=== PATIENT | female | born 1975 ===

== ENCOUNTER 2024-12-05 03:48 | Observation (INO) | payer OTHER, SELFPAY ==
[2024-12-05] VITALS (26 sets, daily range): BP systolic 100–160; BP diastolic 74–121; PULSE 85–111; RESP 16–18; TEMP 36.3–37.1; O2SAT 92–97; BMI 27.6; BMI 28.0
--- OUTSIDE RECORDS SUMMARY | 2024-12-05 03:52 | XMS_ITS | Clinical Summary ---
Author Organization [employer] [facility] Address [address] [place] [id number] Care Team Providers Care Engine Dynamometer Tester Name Role Phone Cristin Dalton MD Unavailable Lynnette Del Rio RN Unavailable Arlene Camilo MD Unavailable Pcp, No Primary Care Provider Unavailabl e Allergies Active Allergy Reactions Criticality Noted Date Comments Cats (Fur, Dander, Saliva) Other - Describe In Comment Field 04/22/2007 Itching eyes and throat House Dust 04/22/2007 Erythromycin Other - Describe In Comment Field 06/26/2008 Swelling in throat Olanzapine Headache 07/22/2024 Homeopathic Products 04/22/2007 Medications ibuprofen (ADVIL; MOTRIN) 200 mg tabletIndications: Status post endometrial ablation Take 2-4 tablets by mouth every 6 hours if needed for Pain (mild pain). 100 tablet 12/12/19 18 Active clonazePAM (KLONOPIN WAFER) 0.5 mg disintegrating tabletIndications: Seizure (HC) Take 1 Tablet (0.5 mg) by mouth 2 times daily if needed for Seizures (for any seizures. Including facial numbness, involuntary head turning or full body stiffness. do not exceed 2 doses in 24 hours. Call 911 if seizure lasts 5 minutes.). 5 Tablet 4 3:20 PM CDT 12/01/19 24 Active sennosides-docusat e (SENOKOT S) (8.6-50 mg) tabletIndications: Non-small cell carcinoma of left lung, stage 4 (HC) Take 1 Tablet by mouth 2 times daily if needed for Constipation. 20 Tablet 4 1:37 PM BACKPACKERS MANAGER 12/23/19 24 Active oxyCODONE (ROXICODONE) 5 mg immediate release tabletIndications: Non-small cell carcinoma of left lung, stage 4 (HC) Take 1-2 Tablets (5-10 mg) by mouth every 6 hours if needed for Pain. 8 Tablet 4 1:37 PM BACKPACKERS MANAGER 12/23/19 24 Active ibuprofen (ADVIL; MOTRIN) 600 mg tabletIndications: Non-small cell carcinoma of left lung, stage 4 (HC) Take 1 Tablet (600 mg) by mouth every 6 hours if needed for Pain. Maximum of 3200 mg in 24 hours. 30 Tablet 4 1:37 PM BACKPACKERS MANAGER 12/23/19 24 Active lidocaine-prilocai ne 2.5%-2.5% cream Apply 5 g topically to affected area(s) each time if needed. 12/24/19 24 Active levETIRAcetam (KEPPRA) 1,000 mg tabletIndications: Seizure (HC) Take 1 Tablet (1,000 mg) by mouth two times daily. 60 Tablet 3 03/23/19 25 Active LORazepam 0.5 mg tabIndications:Ins omnia, unspecified type TAKE 1 TO 2 TABLETS(0.5 TO 1 MG) BY MOUTH AT BEDTIME NEEDED FOR SLEEP 30 Tablet 05/17/19 25 Active dexAMETHasone 4 mg tabletIndications: Non-small cell carcinoma of left lung, stage 4 (HC),Metastasis to brain (HC) Take 2 Tablets (8 mg) by mouth once daily with a meal. Take for 3 days, starting the day after chemotherapy. 36 Tablet 2 07/14/19 25 Active ondansetron 8 mg tabletIndications: Non-small cell carcinoma of left lung, stage 4 (HC),Metastasis to brain (HC) Take 1 Tablet (8 mg) by mouth every 8 hours if needed for Nausea/Vomiting. 30 Tablet 2 07/14/19 25 Active prochlorperazine (Compazine) 10 mg tabletIndications: Non-small cell carcinoma of left lung, stage 4 (HC),Metastasis to brain (HC) Take 1 Tablet (10 mg) by mouth every 6 hours if needed for Nausea/Vomiting. 30 Tablet 2 07/14/19 25 Active folic acid 1 mg tabletIndications: Non-small cell carcinoma of left lung, stage 4 (HC),Metastasis to brain (HC) TAKE 1 TABLET BY MOUTH EVERY DAY, START 7 DAYS BEFORE CHEMOTHERAPY AND CONTINUE FOR 21 DAYS AFTER CHEMOTHERAPY 28 Tablet 11 11/06/19 25 Active Active Problems Problem Noted Date Diagnosed Date Non-small cell carcinoma of left lung, stage 4 1 Metastasis to brain 11/30/2023 Lung mass 11/30/2023 Seizure 11/30/2023 Pap smear for cervical cancer screening 10/18/19 23 Overview (11/14/2022): 10/2022 NIL/HPV negative. Plan: Pap/HPV due 10/2027. Menometrorrhagia 10/20/2017 Endometrial polyp 10/20/2017 Encounters Date Type Department Care Team Description 11/23/2024 11:00 AM CDT Office Visit [address] [phone] Arlene Camilo MD Follow Up (Non-small cell carcinoma of left lung, stage 4 (HC)) 11/23/2024 9:53 AM CDT - 11/23/2024 11:59 PM CDT Hospital Encounter [facility] [address] [place] [phone] Arlene Camilo MD Non-small cell carcinoma of left lung, stage 4 (HC) (Primary Dx); Metastasis to brain (HC) 11/23/2024 Travel 11/04/[address] [phone] Arlene Camilo MD Refill Request (Folic Acid) 11/02/2024 10:40 AM CDT Office Visit [address] [phone] Arlene Camilo MD Follow Up (Non-small cell carcinoma of left lung, stage 4 (HC)) 11/02/2024 9:25 AM CDT - 11/02/2024 11:59 PM CDT Hospital Encounter [facility] [address] [facility] [place] [address] Arlene Camilo MD Non-small cell carcinoma of left lung, stage 4 (HC) (Primary Dx); Metastasis to brain (HC) 11/02/2024 Travel 10/26/2024 10:43 AM CDT - 10/26/2024 11:59 PM CDT Hospital Encounter [address] [place] [address] Arlene Camilo MD Metastasis to brain (HC); Non-small cell carcinoma of left lung, stage 4 (HC) 10/26/2024 10:26 AM CDT - 10/26/2024 10:42 AM CDT Hospital Encounter [facility] [address] [place] [address] [place] [address] Arlene Camilo MD Non-small cell carcinoma of left lung, stage 4 (HC) (Primary Dx) 10/26/2024 Travel 10/18/[address] [place] [address] Val Kang, RN Results 10/14/2024 8:28 AM CDT - 10/14/2024 11:59 PM CDT Hospital Encounter [address] [place] [address] Gia Hutton PA Non-small cell carcinoma of left lung, stage 4 (HC) 10/14/2024 8:15 AM CDT - 10/14/2024 8:27 AM CDT Hospital Encounter [facility] [address] [place], [place] [address] [address] Arlene Camilo MD Non-small cell carcinoma of left lung, stage 4 (HC) (Primary Dx) 10/14/2024 Travel 10/12/2024 10:40 AM CDT Office [address] [place] [address] Arlene Camilo MD Follow Up (Metastasis to brain (HC)) 10/12/2024 9:24 AM CDT - 10/12/2024 11:59 PM CDT Hospital Encounter [facility] [address] [facility] [place] [address] Arlene Camilo MD Non-small cell carcinoma of left lung, stage 4 (HC) (Primary Dx); Metastasis to brain (HC) 10/12/2024 Travel 09/21/2024 11:00 AM CDT Office Visit [address] [phone] Arlene Camilo MD Follow Up (Non-small cell carcinoma of left lung, stage 4 (HC)//) 09/21/2024 9:49 AM CDT - 09/21/2024 11:59 PM CDT Hospital Encounter [facility] [address] [place] [address] Arlene Camilo MD Non-small cell carcinoma of left lung, stage 4 (HC) (Primary Dx); Metastasis to brain (HC) 09/20/2024 Travel from Last 3 Months Immunizations Immunization Administration Dates Next Due Hepatitis B (Adult) 05/12/2011,11/21/2010,2010 Tdap 09/10/2017 Family History Medical History Relation Name Comments Cancer-prostate Father Cancer-ovarian Maternal Aunt Fibromyalgia Mother Cancer-breast Paternal Aunt No Known Problems Sister Other Son esophageal stri cture Cancer-colon No Family History Relation Name Status Comments Father Alive Maternal Aunt Mother Alive Paternal Aunt Sister Alive Son Alive Social History Tobacco Use Types Packs/Day Years Used Date Smoking Tobacco: Former Cigarettes 0.1 5 2 003 - 02/16/2005 Smokeless Tobacco: Never Tobacco Cessation:Counseling Given: Not Answered Comments: smokes outside. Alcohol Use Standard Drinks/Week Comments Yes 2 (1 standard drink = 0.6 oz pur e alcohol) socially once in a while PHQ-2 Answer Date Recorded PHQ-2 TOTAL SCORE 0 11/06/2022 Social Connections Answer Date Recorded Do you often feel lonely or isolated from those around you? 0 11/30/2023 Financial Resource Strain Answer Date R ecorded Difficulty of Paying Living Expenses 3 11/30/2023 Difficulty of Paying Living Expenses Not on file 11/30/2023 Food Insecurity Answer Date Recorded Do you worry your food will run out before you are able to buy more? 1 11/30/2023 Transportation Needs Answer Date Record ed Does lack of transportation keep you from medica l appointments? 1 11/30/2023 Does lack of transportation keep you from work, meetings or getting things that you need? 1 11/30/2023 Housing Stability Answer Date Recorded What is your housing situation today? 1 11/30/2023 Interpersonal Safety Answer Date Record ed Are you being hit, kicked, p ushed or yelled at (see row info)? No 11/23/2024 Interpersonal Safety Abuse 12 - 18 Not on file 11/23/2024 Interpersonal Safety Ambulatory Vulnerability No t on file 11/23/2024 Utilities Answer Date Recorded Do you have trouble paying f or utilities (for example, heat, electricity, water, phone)? 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 file Not on file Not on file Obstetrics History Para Term AB IAB SAB Ectopic Multiple Livin g Live Births 1 1 1 1 Date Outcome GA Total Labor Labor/2nd/3rd Weight Sex Type Anes PTL Edyta A1 A5 Name Clin Term Comments 1 term VD (1996), 1 stepson (1992) Last Filed Vital Signs Vital Sign Reading Time Taken Comments Blood Pressure 143/73 11/23/2024 10:57 AM CDT Pulse 80 11/23/2024 10:57 AM CDT Temperature 36.4 C (97.6 F) 11/23/2024 10:57 AM CDT Respiratory Rate 18 11/23/2024 10:57 AM CDT Oxygen Saturation 99% 11/23/2024 10:57 AM CDT Inhaled Oxygen Concentration - - Weight 68.6 kg (151 lb 4.8 oz) 11/23/2024 10:57 AM CDT Height 157.5 cm (5' 2) 11/23/2024 10:57 AM CDT Body Mass Index 27.67 11/23/2024 10:57 AM CDT Plan of Treatment Upcoming Encounters Date Type Department Care Team (Late st Contact Info) Description 12/14/2024 10:00 AM CDT Appointment [facility] [address] [place], [place] [address] [address] 12/14/2024 10:45 AM CDT Office [address] [place] [phone] Lynnette Fishman, [employer] FINISHER [address] [place] [address] 12/14/2024 11:30 AM CDT Appointment [facility] [address] [place] [address] [place] [address] 01/04/2025 10:00 AM BACKPACKERS MANAGER Appointment [facility] [address] [place] [address] 01/04/2025 10:40 AM BACKPACKERS MANAGER Office [address] [place] [phone] Arlene Camilo MD [address] [place] [phone] 01/04/2025 11:00 AM BACKPACKERS MANAGER Appointment [facility] [address] [place] [address] 01/25/2025 10:00 AM BACKPACKERS MANAGER Appointment [facility] [address] [place] [address] 01/25/2025 11:00 AM BACKPACKERS MANAGER Office [address] [place] [phone] Arlene Camilo MD [address] [place] [address] 01/25/2025 11:30 AM BACKPACKERS MANAGER Appointment [facility] [address] [facility] [place] [address] Health Maintenance Due Date Last Done Comments COVID-19 vaccine series (#1) 1982 Depression screening for age 12+ 1989 HIV for age 15-65 1992 Hepatitis C screening for ag e 18-79 05/29/1995 Pneumococcal series for age 6-49 (1 of 2 - PCV) 1996 Colonoscopy through age 75 2022 Mammogram for age 45-75 10/14/2023 10/13/2022 Influenza Vaccine (#1) 2024 BMI (ht and wt on same day) for age 18+ 11/23/2025 11/23/2024, 11/02/2024, 10/12/2024, Additional history exists Tetanus booster 09/11/2027 09/10/2017 Lipids for age 45-75 11/07/2027 11/06/2022, 09/11/19 18 Pap test for age 21-65 11/07/2027 , 11/06/2022, 09/10/2017, Additional history exists RSV vaccine for adults or (1 - 1-dose 75+ series) 2052 Hepatitis B series for 19+ Completed 05/11, 11/21/2010, 10/17/2010 Medical Devices Implanted Type Area Commercial Kitchen Service Technician Device Identifier Shelf Expiration Date Model / Serial / Lot Port W/8fr 1 [employer] - [id number] Implanted:Qty: 1 on 12/23/2023 by Kate Velasquez MD at [facility] Right: Jugular Vein [employer] 05/16/2025 [id number] / / [id number] Procedures Procedure Name Priority Date/Time Associated Diagnosis Comments COMP METABOLIC PANEL STAT 11/23/2024 10:09 AM CDT Metastasis to brain (HC) Non-small cell carcinoma of left lung, stage 4 (HC) ONCOLOGY ABSOLUTE NEUTROPHIL COUNT STAT 11/23/2024 10:09 AM CDT Metastasis to brain (HC) Non-small cell carcinoma of left lung, stage 4 (HC) COMP METABOLIC PANEL STAT 11/02/2024 9:34 AM CDT Metastasis to brain (HC) Non-small cell carcinoma of left lung, stage 4 (HC) ONCOLOGY ABSOLUTE NEUTROPHIL COUNT STAT 11/02/2024 9:34 AM CDT Metastasis to brain (HC) Non-small cell carcinoma of left lung, stage 4 (HC) MR HEAD BRAIN WWO Routine 10/26/2024 11: 23 AM CDT Metastasis to brain (HC) Non-small cell carcinoma of left lung, stage 4 (HC) PET CT SKULL BASE TO MID THIGH SUBSEQUENT TREAT Routine 10/14/2024 10:30 AM CDT Non-small cell carcinoma of left lung, stage 4 (HC) COMP METABOLIC PANEL STAT 10/12/2024 9:56 AM CDT Metastasis to brain (HC) Non-small cell carcinoma of left lung, stage 4 (HC) ONCOLOGY ABSOLUTE NEUTROPHIL COUNT STAT 10/12/2024 9:56 AM CDT Metastasis to brain (HC) Non-small cell carcinoma of left lung, stage 4 (HC) RED CELL MORPHOLOGY STAT 09/21/2024 1 0:00 AM CDT Metastasis to brain (HC) Non-small cell carcinoma of left lung, stage 4 (HC) PLATELET ESTIMATE STAT 09/21/2024 10: 00 AM CDT Metastasis to brain (HC) Non-small cell carcinoma of left lung, stage 4 (HC) MANUAL DIFFERENTIAL STAT 09/21/2024 1 0:00 AM CDT Metastasis to brain (HC) Non-small cell carcinoma of left lung, stage 4 (HC) COMP METABOLIC PANEL STAT 09/21/2024 10:00 AM CDT Metastasis to brain (HC) Non-small cell carcinoma of left lung, stage 4 (HC) ONCOLOGY ABSOLUTE NEUTROPHIL COUNT STAT 09/21/2024 10:00 AM CDT Metastasis to brain (HC) Non-small cell carcinoma of left lung, stage 4 (HC) LIPID PANEL W REFLEX MEASURED LDL Routine 11/06/2022 10:27 AM CDT Lipid screening HPV HIGH RISK Routine 11/06/2022 10:00 AM CDT Cervical cancer screening XR MAMMO BILAT SCREENING Routine 10/13/2022 11:13 AM CDT Visit for screening mammogram from Last 3 Months or Most Recently Relevant to Health Maintenance Results * (ABNORMAL) ONCOLOGY ABSOLUTE NEUTROPHIL COUNT (11/23/2024 10:09 AM CDT) Only the most recent of4 resultswithin the time period is included. WHITE BLOOD COUNT 3.3(L) 4.5 - 11.0 thou/cu mm 11/23/2024 10:19 AM CDT [facility] RED BLOOD COUNT 3.72(L) 4.00 - 5.20 mil/cu mm 11/23/2024 10:19 AM CDT [facility] HEMOGLOBIN 12.9 12.0 - 16.0 g/dL 11/23/2024 10:19 AM CDT [facility] HEMATOCRIT 36.7 33.0 - 51.0 % 11/23/2024 10:19 AM CDT [facility] MCV 99 80 - 100 fL 11/23/2024 10:19 AM CDT [facility] MCH 34.7(H) 26.0 - 34.0 pg 11/23/2024 10:19 AM CDT [facility] MCHC 35.1 32.0 - 36.0 g/dL 11/23/2024 10:19 AM CDT [facility] RDW 13.2 11.5 - 15.5 % 11/23/2024 10:19 AM CDT [facility] PLATELET COUNT 243 140 - 440 thou/cu mm 11/23/2024 10:19 AM CDT [facility] MPV 9.6 6.5 - 11.0 fL 11/23/2024 10:19 AM CDT [facility] % NEUT 40.1 % 11/23/2024 10:19 AM CDT [facility] % LYMPH 33.4 % 11/23/2024 10:19 AM CDT [facility] % MONO 13.9 % 11/23/2024 10:19 AM CDT [facility] % EOS 11.1 % 11/23/2024 10:19 AM CDT [facility] % BASO 1.2 % 11/23/2024 10:19 AM CDT [facility] ONCOLOGY ABSOLUTE NEUTROPHILS 1.3(L) 1.7 - 7.0 thou/cu mm 11/23/2024 10:19 AM CDT [facility] % IMMATURE GRAN (METAS,MYELOS,SC OS) 0.3 % 11/23/2024 10:19 AM CDT [facility] ABSOLUTE LYMPHOCYTES 1.1 0.9 - 2.9 thou/cu mm 11/23/2024 10:19 AM CDT [facility] ABSOLUTE MONOCYTES 0.5 <0.9 thou/cu mm 11/23/2024 10:19 AM CDT [facility] ABSOLUTE EOSINOPHILS 0.4 <0.5 thou/cu mm 11/23/2024 10:19 AM CDT [facility] ABSOLUTE BASOPHILS 0.0 <0.3 thou/cu mm 11/23/2024 10:19 AM CDT [facility] ABSOLUTE IMMATURE GRANULOCYTES(MET ,MYELOS,PROS) 0.0 <0.3 thou/cu mm 11/23/2024 10:19 AM CDT [facility] NRBC 0.0 % 11/23/2024 10:19 AM CDT [facility] ABS NRBC 0.0 thou /cu mm 11/23/2024 10:19 AM CDT [facility] Blood BLOOD SPECIMEN / Unknown Line/Port / Unknown 11/23/2024 10:09 AM CDT 11/23/2024 10:15 AM CDT Narrative [facility] - 11/23/2024 10:19 AM CDT Includes CBC and differential. us Arlene Camilo MD HEMATOLOGY Final Result [facility] [address] [place] [address] * (ABNORMAL) COMP METABOLIC PANEL (11/23/2024 10:09 AM CDT) Only the most recent of4 resultswithin the time period is included. SODIUM 142 136 - 145 mmol/L 11/23/2024 10:52 AM CDT [facility] POTASSIUM 3.6 3.5 - 5.1 mmol/L 11/23/2024 10:52 AM CDT [facility] CHLORIDE 105 98 - 107 mmol/L 11/23/2024 10:52 AM CDT [facility] CO2,TOTAL 28 22 - 29 mmol/L 11/23/2024 10:52 AM CDT [facility] ANION GAP 9 5 - 18 11/23/2024 10:52 AM T [facility] GLUCOSE 110(H) 70 - 99 mg/dL 11/23/2024 10:52 AM CDT [facility] CALCIUM 9.3 8.8 - 10.4 mg/dL 11/23/2024 10:52 AM CDT [facility] Comment: Reference ranges for this test were updated on 12/22/2023 to reflect our healthy population more accurately. Reference range changes are not retroactively applied to results, but previous results using the same methodology can be interpreted in the context of the new reference range. BUN 6 6 - 20 mg/dL 11/23/2024 10:52 AM CDT [facility] CREATININE 0.74 0.50 - 0.90 mg/dL 11/23/2024 10:52 AM T [facility] BUN/CREAT RATIO 8(L) 10 - 20 10:52 AM T [facility] eGFR >90 >90 mL/min/1.7 3m2 11/23/2024 10:52 AM T [facility] Comment:As of 2021, eG FR is calculated by the CKD-EPI creatinine equation without race adjustment. eGFR can be influenced by muscle mass, exercise, and diet. The reported eGFR is an estimation only and is only applicable if the renal function is stable. ALBUMIN 4.1 4.0 - 4.9 g/dL 11/23/2024 10:52 AM CDT [facility] PROTEIN,TOTAL 6.0 6.0 - 8.0 g/dL 11/23/2024 10:52 AM CDT [facility] BILIRUBIN,TOTAL 0.2 0.0 - 1.2 mg/dL 11/23/2024 10:52 AM CDT [facility] ALK PHOSPHATASE 68 35 - 104 IU/L 11/23/2024 10:52 AM CDT [facility] ALT (SGPT) 20 10 - 35 IU/L 11/23/2024 10:52 AM CDT [facility] AST (SGOT) 23 10 - 35 IU/L 11/23/2024 10:52 AM CDT [facility] Blood BLOOD SPECIMEN / Unknown Line/Port / Unknown 11/23/2024 10:09 AM CDT 11/23/2024 10:15 AM CDT Arlene Camilo MD CHEMISTRY Final Result [facility] [id number] [place] [address] * MR BRAIN W/WO CONTRAST (10/26/2024 11:23 AM CDT) Anatomical Region Laterality Modality BRAIN, HEAD Magnetic Resonan ce 10/27/2024 10:1 2 AM CDT Narrative 10/27/2024 10:12 AM CDT For Patients: As a result of the Century Cures Act, medical imaging exams and procedure reports are released immediately into your electronic medical record. You may view this report before your referring provider. If you have questions, please contact your health care provider. Indication: Metastasis to brain, NSCLC, met disease to brain follow up Technique: Noncontrast sagittal T1, axial FLAIR, T2 turbo spine echo, and diffusion weighted images. Supplemental post contrast T1 weighted axial and coronal sequences are provided after administration of 14 cc gadolinium-based IV contrast. Comparison: 08/03/2024 MRI Findings: No mass effect or midline shift. No hydrocephalus. The pituitary gland, optic chiasm, pineal gland, and cerebellar tonsils are unremarkable. There is no evidence of diffusion restriction to suggest acute ischemia. No suspicious extra-axial collection or acute intracranial hemorrhage. Decreased mastoid effusions bilaterally compared to the prior study. Stable 4 mm metastasis in the right middle frontal gyrus with decreased overall enhancement intensity (series 12, image 135). Stable adjacent FLAIR signal hyperintensity. Stable 3 mm metastasis in the right superior frontal gyrus (series 12, image 135). Stable adjacent FLAIR signal hyperintensity. Decreased size of enhancing lesion in the left frontal lobe centrum semiovale measuring up to 3 mm previously 4 mm (series 12, image 117). 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 Stable 3 mm focus of enhancement in the left frontal operculum (series 12, image 84). Decreased size of treated metastasis in the right cingulate gyrus measuring up to 6 x 2 mm previously 7 x 4 mm (series 12, image 109). Impression: 1. Decreased size of enhancing metastatic lesions in the left frontal lobe centrum semiovale and right cingulate gyrus. Otherwise stable metastatic lesions in the right middle frontal gyrus, right superior frontal gyrus, and left frontal operculum. 2. No new lesions or evidence of interval tumor progression. 3. No acute intracranial abnormalities. Dictated by Duke Brito MD @ 10/27/2024 10:12:49 AM (Electronically Signed) Procedure Note Duke Brito MD - 10/27/2024 For Patients: As a result of the Century Cures Act, medical imagingexams and procedure reports are released immediately into your electronicmedical record. You may view this report before your referring provider.If you have questions, please contact your health care provider. Indication: Metastasis to brain, NSCLC, met disease to brain follow up Technique: Noncontrast sagittal T1, axial FLAIR, T2 turbo spine echo, and diffusionweighted images. Supplemental post contrast T1 weighted axial and coronalsequences are provided after administration of 14 cc gadolinium-based IVcontrast. Comparison: 08/03/2024 MRI Findings: No mass effect or midline shift. No hydrocephalus. The pituitary gland,optic chiasm, pineal gland, and cerebellar tonsils are unremarkable. Thereis no evidence of diffusion restriction to suggest acute ischemia. Nosuspicious extra-axial collection or acute intracranial hemorrhage.Decreased mastoid effusions bilaterally compared to the prior study. Stable 4 mm metastasis in the right middle frontal gyrus with decreasedoverall enhancement intensity (series 12, image 135). Stable adjacentFLAIR signal hyperintensity. Stable 3 mm metastasis in the right superior frontal gyrus (series 12,image 135). Stable adjacent FLAIR signal hyperintensity. Decreased size of enhancing lesion in the left frontal lobe centrumsemiovale measuring up to 3 mm previously 4 mm (series 12, image 117). 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 Stable 3 mm focus of enhancement in the left frontal operculum (series 12,image 84). Decreased size of treated metastasis in the right cingulate gyrusmeasuring up to 6 x 2 mm previously 7 x 4 mm (series 12, image 109). Impression: 1. Decreased size of enhancing metastatic lesions in the left frontal lobecentrum semiovale and right cingulate gyrus. Otherwise stable metastaticlesions in the right middle frontal gyrus, right superior frontal gyrus,and left frontal operculum. 2. No new lesions or evidence of interval tumor progression. 3. No acute intracranial abnormalities. Dictated by Duke Brito MD @ 10/27/2024 10:12:49 AM (Electronically Signed) us Arlene Camilo MD MR Final Result * PET CT SKULL BASE TO MID THIGH SUBSEQUENT TREAT (10/14/2024 10:30 AM CDT) Anatomical Region Laterality Modality Positron Emissio n Tomography (PET) 10/18/2024 10:5 3 AM CDT Impressions 10/18/2024 10:53 AM CDT 1. Decrease in size and activity of the irregular opacity in the left upper lobe. 2. Resolution of the mediastinal and bilateral hilar adenopathy. 3. Focal area of increased activity in the superior segment of the left lower lobe with no corresponding CT abnormality may be artifactual. 4. Resolution of the upper abdominal adenopathy and the increased activity in the left adrenal gland. Dictated by Alexander Méndez MD @ 10/18/2024 10:53:38 AM (Electronically Signed) Narrative 10/18/2024 10:53 AM CDT For Patients: As a result of the 21st Century Cures Act, medical imaging exams and procedure reports are released immediately into your electronic medical record. You may view this report before your referring provider. If you have questions, please contact your health care provider. CLINICAL HISTORY: Metastatic lung cancer. TECHNIQUE: Following IV injection of 13-itseon-9-deoxyglucose (FDG) and a standard uptake period of approximately 60 minutes, a non-contrast CT scan followed by a PET scan were acquired along the length of the body from the mid portion of the head to the mid thighs. The non-contrast CT was used for anatomic localization and photon attenuation correction of the PET scan. Blood Glucose Level (mg/dL): 110 FDG Dose (mCi): 11.1 COMPARISON: PET-CT scans dated 08 Jul 2024, 01 April 2024, and 15 December 2023. FINDINGS: Head/Neck: No abnormal activity identified in the head and neck. Chest: Right-sided Port-A-Cath. Resolution of the mediastinal and bilateral hilar adenopathy. No axillary adenopathy. The lungs show decrease in size of an irregular opacity in the left upper lobe measuring 1.8 x 1.2 cm, previously 2.2 x 1.6 cm, SUV max 2.7 previously 34.5. Small area of increased activity in the superior segment of the left lower lobe with no corresponding CT abnormality may represent a blood clot injection artifact, SUV max 34.1. No other focal pulmonary opacities. No pneumothorax. Abdomen/Pelvis: No focal abnormalities identified in the visualized portions of the liver, spleen, pancreas, adrenal glands, and kidneys. No hydronephrosis. Resolution of the increased activity in the left adrenal gland. Scattered areas of increased activity in the colon with no corresponding CT abnormality may be physiologic. The remainder of the GI tract is incompletely distended but shows no gross abnormalities. Resolution of the upper abdominal adenopathy. No retroperitoneal, pelvic sidewall, or mesenteric adenopathy. Bones: No abnormal skeletal activity identified. Procedure Note Alexander Méndez MD - 10/18/2024 For Patients: As a result of the Cures Act, medical imagingexams and procedure reports are released immediately into your electronicmedical record. You may view this report before your referring provider.If you have questions, please contact your health care provider. CLINICAL HISTORY: Metastatic lung cancer. TECHNIQUE: Following IV injection of 08-hjigpv-7-deoxyglucose (FDG) and a standarduptake period of approximately 60 minutes, a non-contrast CT scan followedby a PET scan were acquired along the length of the body from the midportion of the head to the mid thighs. The non-contrast CT was used foranatomic localization and photon attenuation correction of the PET scan. Blood Glucose Level (mg/dL): 110 FDG Dose (mCi): 11.1 COMPARISON: PET-CT scans dated 08 Jul 2024, 01 April 2024, and 15 December 2023. FINDINGS: Head/Neck: No abnormal activity identified in the head and neck. Chest: Right-sided Port-A-Cath. Resolution of the mediastinal and bilateral hilaradenopathy. No axillary adenopathy. The lungs show decrease in size of an irregular opacity in the left upperlobe measuring 1.8 x 1.2 cm, previously 2.2 x 1.6 cm, SUV max 2.7previously 34.5. Small area of increased activity in the superior segment of the left lowerlobe with no corresponding CT abnormality may represent a blood clotinjection artifact, SUV max 34.1. No other focal pulmonary opacities. No pneumothorax. Abdomen/Pelvis: No focal abnormalities identified in the visualized portions of the liver,spleen, pancreas, adrenal glands, and kidneys. No hydronephrosis. Resolution of the increased activity in the left adrenal gland. Scattered areas of increased activity in the colon with no correspondingCT abnormality may be physiologic. The remainder of the GI tract isincompletely distended but shows no gross abnormalities. Resolution of the upper abdominal adenopathy. No retroperitoneal, pelvic sidewall, or mesenteric adenopathy. Bones: No abnormal skeletal activity identified. IMPRESSION: 1. Decrease in size and activity of the irregular opacity in the leftupper lobe. 2. Resolution of the mediastinal and bilateral hilar adenopathy. 3. Focal area of increased activity in the superior segment of the leftlower lobe with no corresponding CT abnormality may be artifactual. 4. Resolution of the upper abdominal adenopathy and the increased activityin the left adrenal gland. Dictated by Alexander Méndez MD @ 10/18/2024 10:53:38 AM (Electronically Signed) us Gia BORGES PET Final Resul t * RED CELL MORPHOLOGY (09/21/2024 10:00 AM CDT) RBC COMMENT RBC morphology appears normal RBC morphology appears normal, RBC morphology within normal limits for newborns. 09/21/2024 12:36 PM CDT [facility] Blood BLOOD SPECIMEN / Unknown Line/Port / Unknown 09/21/2024 10:00 AM CDT 09/21/2024 11:05 AM CDT Arlene Camilo MD HEMATOLOGY Final Result Performing Organization Address City/[facility] [address]/ZIP Co de Phone Number [address] [address] * PLATELET ESTIMATE (09/21/2024 10:00 AM CDT) Pathologist [facility] PLATELET ESTIMATE Adequate Adequate, No estimate 09/21/2024 12:34 PM CDT [facility] Blood BLOOD SPECIMEN / Unknown Line/Port / Unknown 09/21/2024 10:00 AM CDT 09/21/2024 11:05 AM CDT Narrative [facility] - 09/21/2024 12:34 PM CDT Includes CBC and differential. Arlene Camilo MD HEMATOLOGY Final Result Performing Organization Address City/[facility] [address]/[facility] Co de Phone Number [address] [address] * (ABNORMAL) MANUAL DIFFERENTIAL (09/21/2024 10:00 AM CDT) Pathologist [facility] % NEUTROPHILS 52.0 % 09/21/2024 12:34 PM CDT [facility] % LYMPHOCYTES 24.0 % 09/21/2024 12:34 PM CDT [facility] % MONOCYTES 13.0 % 09/21/2024 12:34 PM CDT [facility] % EOSINOPHILS 11.0 % 09/21/2024 12:34 PM CDT [facility] % BASOPHILS 0.0 % 09/21/2024 12:34 PM CDT [facility] NEUTROPHILS ABSOLUTE 3.0 1.7 - 7.0 thou/cu mm 09/21/2024 12:34 PM CDT [facility] LYMPHOCYTES ABSOLUTE 1.4 0.9 - 2.9 thou/cu mm 09/21/2024 12:34 PM CDT [facility] MONOCYTES ABSOLUTE 0.8 <0.9 thou/cu mm 09/21/2024 12:34 PM CDT [facility] EOSINOPHILS ABSOLUTE 0.6(H) <0.5 thou/cu mm 09/21/2024 12:34 PM CDT [facility] BASOPHILS ABSOLUTE 0.0 <0.3 thou/cu mm 09/21/2024 12:34 PM CDT [facility] Blood BLOOD SPECIMEN / Unknown Line/Port / Unknown 09/21/2024 10:00 AM CDT 09/21/2024 11:05 AM CDT Narrative [facility] - 09/21/2024 12:34 PM CDT Includes CBC and differential. us Arlene Camilo MD [place] [address] * (ABNORMAL) LIPID PANEL W REFLEX MEASURED LDL (11/06/2022 10:27 AM CDT) CHOLESTEROL,TOTAL 282(H) 100 - 199 mg/dL 11/06/2022 9:47 PM CDT [facility] Comment: Cholesterol, Total Reference Ranges Desirable <200 mg/dL Borderline 200-239 mg/dL High >=240 mg/dL TRIGLYCERIDES 197(H) <150 mg/dL 11/06/2022 9:47 PM CDT [facility] HDL CHOLESTEROL 53 >40 mg/dL 9:47 PM CDT [facility] NON-HDL CHOLESTEROL 229(H) <145 mg/dl 11/06/2022 9:47 PM CDT [facility] CHOL/HDL RATIO 5.32(H) <4.50 11/06/2022 9:47 PM CDT [facility] LDL CHOLESTEROL 190(H) <=130 mg/dL 11/06/2022 9:47 PM CDT [facility] VLDL CHOLESTEROL 39(H) <=30 mg/dL 11/06/2022 9:47 PM CDT [facility] PROVIDER ORDERED STATUS FASTING 11/06/2022 9:47 PM CDT [facility] Blood BLOOD SPECIMEN / Unknown Venipuncture / Unknown 11/06/2022 10:27 AM CDT 11/06/2022 10:27 AM CDT Roberto Scott DO CHEMISTRY Final Result Performing Organization Address City/[facility] [address]/ZIP Co de Phone Number [facility] [address] [place] [address], * HPV HIGH RISK (11/06/2022 10:00 AM CDT) TYPE 16 Negative Negative 11/11/2022 2:23 PM CDT [facility] TYPE 18 Negative Negative 11/11/2022 2:23 PM CDT [facility] OTHER HIGH RISK TYPES Negative Negative 11/11/2022 2:23 PM CDT [facility] Other (Cervical) Non-Blood / Unknown 11/06/2022 10:00 AM CDT 11/07/2022 11:42 AM CDT Narrative [facility] - 11/11/2022 2:23 PM CDT HPV types 16, 18, 31, 33, 35, 39, 45, 51, 52, 56, 58, 59, 66 and 68 DNA were undetectable or below the pre-set threshold. Methodology: [employer] 4800 HPV Test Roberto Scott DO MICROBIOLOGY Final Result [facility] [address] [address], [place] * XR MAMMO BILAT SCREENING (10/13/2022 11:13 AM CDT) Anatomical Region Laterality Modality BREASTS, Breast Left, Breast Right Bilateral Mammography Impressions 10/13/2022 2:21 PM CDT There is no radiographic evidence for malignancy. Recommend annual mammograms. MAMMOGRAM ASSESSMENT: ACR 1 Negative PATIENTS: You will also receive a letter with your examination results in an easy to read format. If you have questions about your results, please contact your referring provider. Narrative 10/13/2022 2:21 PM CDT For Patients: As a result of the Century Cures Act, medical imaging exams and procedure reports are released immediately into your electronic medical record. You may view this report before your referring provider. If you have questions, please contact your health care provider. XR MAMMO BILAT SCREENING [[id number]] CLINICAL HISTORY: This is an asymptomatic 47 y.o. patient. INDICATION FOR EXAM: Mammogram Screening. TECHNIQUE: CC & MLO views were obtained. This study was evaluated with the assistance of Computer-Aided Detection. COMPARISON FILM: This is a baseline study. FINDINGS: The breasts have scattered areas of fibroglandular density. There are no dominant masses, suspicious micro calcifications or areas of architectural distortion. Roberto Scott DO MAMMO Final Result from Last 3 Months or Most Recently Relevant to Health Maintenance Insurance [employer]LE[employer]SEPH [id number] Advance Directives * Full Code (Latest Code Status on File) Date Activated Date Inactivated Comments 12/23/2023 10:34 AM 12/23/2023 4:34 PM Question Answer Comments Code Status Discussion: Unable to Assess Preferences, Provider to review later * Full Code Date Activated Date Inactivated Comments 11/30/2023 4:33 PM 12/04/2023 7:16 PM Question Answer Comments Code Status Discussion: Other * Full Code Date Activated Date Inactivated Comments 12/11/2017 6:02 AM 12/11/2017 11:27 AM Question Answer Comments Code Status Discussion: Discussed Care Teams 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 PCP - General 08/30/24 Cristin Dalton MD [address] [place] [address] Radiation Oncologist Radiation Oncology 12/02/23 Lynnette Del Rio, RN [address] [place] [address] Nurse Navigator - Oncology Registered Nurse 12/04/23 Arlene Camilo MD [address] [place] [address] Medical Oncologist Internal Medicine 12/14/23
--- NOTE | 2024-12-05 03:55 | ED.GENADULT ---
HPI - General Adult General Time Seen by Provider: 03:55 Date Seen: 12/05/24 Chief complaint: Abdominal Pain Stated complaint: abdominal pain Time Seen by Provider: 12/05/24 03:55 Source: patient and family (Spouse) Mode of arrival: ambulatory Limitations: no limitations History of Present Illness HPI narrative: 49-year-old female who presents today with abdominal pain. This started about 1 hour prior to coming the emergency department. Generalized, worse with lying down. Nausea no vomiting, no constipation or diarrhea, no fever chills. Has not taken anything for this. Related Data Home Medications ?Medication ?Instructions ?Recorded ?Confirmed folic acid 1 mg tablet 1 mg PO DAILY 12/05/24 12/05/24 levetiracetam 250 mg tablet PO 12/05/24 ondansetron HCl 8 mg tablet 8 mg PO 3XD 12/05/24 12/05/24 Allergies Allergy/AdvReac Type Severity Reaction Status Date / Time azithromycin Allergy Verified 12/05/24 04:56 Exam Narrative: Exam Narrative: General: Well-developed and well-nourished, appears uncomfortable Head: Atraumatic and normocephalic Eyes: Pupils are equal reactive, extraocular motions intact, conjunctiva clear ENT: External nose and ears are normal, posterior pharynx without erythema or exudate Neck: No midline cervical tenderness, full spontaneous range of motion the neck, trachea midline, no adenopathy Heart: Tachycardic rate and rhythm no murmurs or thrills Lungs: Clear to auscultation bilaterally without wheezes or crackles Abdomen: Soft, diffuse abdominal tenderness especially in the upper abdomen,, nondistended with active bowel sounds Musculoskeletal: No tenderness, deformity, or edema Neurologic: Awake, alert, and oriented x3, no gross focal neurologic deficits, cranial nerves intact as tested Psych: Mood and affect are appropriate Skin: No rashes Const: Vital Signs, click to edit/add: Vital Signs - 24 hr 12/05/24 03:55 12/05/24 04:32 12/05/24 04:33 Temperature 98.8 F Pulse Rate 108 H 103 H Pulse Rate [Pulse Oximeter] 111 H Respiratory Rate 18 18 Blood Pressure 160/100 H Blood Pressure [Ri ght Upper Arm] 145/121 H Pulse Oximetry 96 92 93 Oxygen Delivery Me thod Room Air 12/05/24 04:34 12/05/24 04:45 12/05/24 05:00 Temperature Pulse Rate 106 H 106 H 104 H Pulse Rate [Pulse Oximeter] Respiratory Rate Blood Pressure Blood Pressure [Ri ght Upper Arm] Pulse Oximetry 94 96 92 Oxygen Delivery Me thod 12/05/24 05:01 12/05/24 05:24 12/05/24 05:30 Temperature Pulse Rate 103 H 102 H 104 H Pulse Rate [Pulse Oximeter] Respiratory Rate Blood Pressure 131/87 Blood Pressure [Ri ght Upper Arm] Pulse Oximetry 94 95 94 Oxygen Delivery Me thod 12/05/24 05:31 12/05/24 05:32 12/05/24 05:45 Temperature Pulse Rate 104 H 107 H 98 Pulse Rate [Pulse Oximeter] Respiratory Rate Blood Pressure 135/81 Blood Pressure [Ri ght Upper Arm] Pulse Oximetry 95 94 93 Oxygen Delivery Me thod 12/05/24 06:00 12/05/24 06:01 12/05/24 06:15 Temperature Pulse Rate 100 96 105 H Pulse Rate [Pulse Oximeter] Respiratory Rate Blood Pressure 117/76 Blood Pressure [Ri ght Upper Arm] Pulse Oximetry 93 96 96 Oxygen Delivery Me thod 12/05/24 06:30 12/05/24 06:32 12/05/24 07:01 Temperature Pulse Rate 106 H 103 H 94 Pulse Rate [Pulse Oximeter] Respiratory Rate Blood Pressure 100/75 116/74 Blood Pressure [Ri ght Upper Arm] Pulse Oximetry 96 95 94 Oxygen Delivery Me thod Course Course ED Course: Reviewed most recent oncology visit from November 23 which was follow-up for lung cancer, she has multiple brain metastases which actually contribute procedure, leading to her initial diagnosis. Patient seen examined, presents today with abdominal pain. Patient with metastatic lung cancer, on chemotherapy. Diffuse abdominal pain started about an hour prior to coming to the emergency department. On exam here, patient appears uncomfortable, mild diffuse abdominal tenderness, tachycardic. Consider bowel obstruction, acute cholecystitis, biliary colic. Labs and CT scan ordered along with Dilaudid for pain. Reevaluation(s) Time of Reevaluation #1: 04:34 Reevaluation #1: CT abdomen and pelvis independently interpreted by me negative for acute intra-abdominal findings. IMPRESSION: Scattered osseous lesions, most of which are sclerotic, though some appear slightly lytic are concerning for osseous metastases. There is a 0.2 centimeter hypodense lesion in segment 5 of the liver, which is indeterminate and too small to characterize. This can be followed on future exams. Mild periportal edema. Time of Reevaluation #2: 05:02 Reevaluation #2: Patient recheck, 2nd dose of Dilaudid this being given, remains quite uncomfortable. Did confirm that her pain is predominantly in the mid abdomen. We discussed findings on CT scan which did not suggest a definitive etiology for pain. Labs are pending. Time of Reevaluation #3: 05:41 Reevaluation #3: Labs independently interpreted by me with elevated AST and ALT, otherwise normal in bed panel and normal lipase. Right upper quadrant ultrasound ordered. Patient more comfortable after medications. Additional Reevaluation(s): 6:50 a.m. patient recheck, she is comfortable but remains tachycardic and most recent blood pressure 100/75 in spite of 2 L fluid bolus. Ultrasound result is pending, repeat lactate ordered and will continue monitor. Despite need admission due to abdominal pain, hypotension, tachycardia. Vital Signs Vital signs: Initial Vital Signs Temperature 98.8 F 12/05/24 03:55 Temperature Source Temporal Artery Scan 12/05/24 03:55 Pulse Rate 111 H 12/05/24 03:55 Respiratory Rate 18 12/05/24 03:55 Blood Pressure 145/121 H 12/05/24 03:55 Blood Pressure Mean 129 H 12/05/24 03:55 Blood Pressure Position Sitting 12/05/24 03:55 Pulse Oximetry 96 12/05/24 03:55 Oxygen Delivery Method Room Air 12/05/24 03:55 Vital Signs Temperature 98.8 F 12/05/24 03:55 Pulse Rate 111 H 12/05/24 03:55 Respiratory Rate 18 12/05/24 03:55 Blood Pressure 145/121 H 12/05/24 03:55 Pulse Oximetry 96 12/05/24 03:55 Oxygen Delivery Method Room Air 12/05/24 03:55 Temperature 98.8 F 12/05/24 03:55 Pulse Rate 94 12/05/24 07:01 Respiratory Rate 18 12/05/24 04:33 Blood Pressure 116/74 12/05/24 07:01 Pulse Oximetry 94 12/05/24 07:01 Oxygen Delivery Method Room Air 12/05/24 03:55 Medications Administered Medications: Generic Name Dose Route Start Last Admin Trade Name Suleman PRN Reason Stop Dose Admin Hydromorphone HCl 0.5 mg 12/05/24 04:00 12/05/24 04:49 Hydromorphone 0.5 Mg/0.5 Ml Inj IVP 0.5 mg Q10M PRN Administration pain Discontinued Medications Generic Name Dose Route Start Last Admin Trade Name Suleman PRN Reason Stop Dose Admin Sodium Chloride 1,000 mls @ 1,000 mls/hr 12/05/24 04:00 12/05/24 05:31 0.9 % Sodium Chloride 1000 Ml IV 12/05/24 04:59 Infused .Q1H SHANIQUA Infusion Sodium Chloride 1,000 mls @ 1,000 mls/hr 12/05/24 05:15 12/05/24 06:30 0.9 % Sodium Chloride 1000 Ml IV 12/05/24 06:14 Infused .Q1H SHANIQUA Infusion Ketorolac Tromethamine 15 mg 12/05/24 05:04 12/05/24 05:29 Ketorolac 15 Mg/Ml Inj IVP 12/05/24 05:05 15 mg ONCE ONE Administration Ondansetron HCl 4 mg 12/05/24 04:00 12/05/24 04:12 Ondansetron 2 Mg/Ml Inj IVP 12/05/24 04:01 4 mg ONCE ONE Administration Medical Decision Making Lab Data Labs: Lab Results 12/05/24 12/05/24 12/05/24 Range/Units 04:38 04:45 07:20 WBC 11.88 H (4.50-11.00) K/uL RBC 3.68 L (4.00-5.20) m/uL Hgb 12.6 (12.0-16.0) gm/dL Hct 36.4 (33.0-51.0) % MCV 99 (80-100) fL MCH 34 (26-34) pg MCHC 35 (32-36) gm/dL RDW Coeff of Danny 12.9 (11.5-15.5) % Plt Count 168 (140-440) K/uL Neut % (Auto) 86.3 H (42.0-72.0) % Lymph % (Auto) 5.9 L (20-44) % [place] % (Auto) 2.8 (0.0-11.0) % Eos % (Auto) 4.4 (0.0-7.0) % Baso % (Auto) 0.3 (0.0-3.0) % Neut # (Auto) 10.30 H (1.7-7.0) K/uL Lymph # (Auto) 0.70 L (0.90-2.90) K/uL [place] # (Auto) 0.30 (0.00-0.90) K/UL Eos # (Auto) 0.50 (0.00-0.50) K/uL Baso # (Auto) 0.00 (0.00-0.30) K/uL Abs Immat Gran (auto) 0.00 (0.00-0.30) K/uL Imm/Tot Granulo (auto) 0.3 % Sodium 134 L (135-149) mmol/L Potassium 3.1 L (3.6-5.1) mmol/L Chloride 101 (96-114) mmol/L Carbon Dioxide 28 (20-32) mmol/L Anion Gap 5 L (7-15) mEq/L BUN 8 (5-24) mg/dL Creatinine 0.7 (0.5-1.5) mg/dL Estimated Creat Clear 78.58 Estimated GFR 107 ml/min Glucose 116 H (60-115) mg/dL Lactate 1.5 1.6 (0.5-1.9) mmol/L Calcium 9.2 (8.4-10.6) mg/dL Magnesium 1.5 (1.5-2.6) mg/dL Total Bilirubin 0.6 (0.1-1.5) mg/dL Direct Bilirubin 0.3 (0.0-0.5) mg/dL AST 166 H (12-35) U/L ALT 116 H (4-35) U/L Alkaline Phosphatase 71 (40-150) U/L Total Protein 6.5 (6.0-8.3) g/dL Albumin 4.0 (3.3-5.0) g/dL Lipase 67 (23-300) U/L Urine Color Yellow (Yellow) Urine Appearance Clear (Clear) Urine pH 5.5 (5.0-8.5) Ur Specific Bell 1.015 (1.000-1.030) Urine Protein Trace A (Negative) Urine Glucose (UA) Negative (Negative) Urine Ketones Negative (Negative) Urine Blood Trace-intact A (Negative) Urine Nitrite Negative (Negative) Urine Bilirubin Negative (Negative) Urine Urobilinogen 0.2 (0.2-1.0) Ur Leukocyte Esterase Trace A (Negative) Urine RBC 0-2 (0-2) Urine WBC 2-5 (0-5) Ur Squamous Epith Cells Moderate A (None-Few) Amorphous Sediment Few A (None) Urine Bacteria Moderate A (None) Urine Mucus Few A (None) Discharge Plan Discharge Clinical Impression: Abdominal pain, Tachycardia, Lung cancer metastatic to bone Patient Disposition: Admitted As Observation
--- NOTE | 2024-12-05 04:00 | CRLHL7_ITS ---
For Patients: As a result of the Century Cures Act, medical imaging exams and procedure reports are released immediately into your electronic medical record. You may view this report before your referring provider. If you have questions, please contact your health care provider. INDICATION: Abdominal pain, metastatic breast cancer TECHNIQUE: CT abdomen and pelvis acquired with 74 cc Isovue 370 IV contrast. COMPARISON: None. FINDINGS: Lower chest: Unremarkable. Liver: Mild periportal edema. There is a 0.2 centimeter hypodense lesion in segment 5 (2/31), which is indeterminate and too small to characterize. Gallbladder and bile ducts: Unremarkable. No stones or inflammation. No biliary dilatation. Pancreas: Unremarkable. Spleen: Unremarkable. Normal in size. No masses. Adrenal glands: Unremarkable. No nodules. Kidneys: Unremarkable. No suspicious masses, stones, or hydronephrosis. GI tract: No obstruction. No evidence of significant bowel inflammation. Normal appendix. Vasculature: Abdominal aorta is normal in caliber. Mesenteric arteries are patent. Lymph nodes: No lymphadenopathy. Peritoneum/Abdominal Wall: Tiny fat containing umbilical hernia. No free air or significant free fluid. Pelvis: Heterogeneous the year is with multiple rounded lesions, likely fibroids. Bones: Scattered osseous lesions, which are predominantly sclerotic, for example in T10, which is lytic and sclerotic and in the sacrum at the level of S1. IMPRESSION: Scattered osseous lesions, most of which are sclerotic, though some appear slightly lytic are concerning for osseous metastases. There is a 0.2 centimeter hypodense lesion in segment 5 of the liver, which is indeterminate and too small to characterize. This can be followed on future exams. Mild periportal edema. Please note that all CT scans at this facility use dose modulation, iterative reconstruction, and/or weight-based dosing when appropriate to reduce radiation dose to as low as reasonably achievable. Dictated by Katelyn Chadwick MD @ 12/05/2024 4:42:43 AM (Electronically Signed)
[2024-12-05] MEDS: ONDANSETRON 2 MG/ML inj 4 MG IVP (04:12)
[2024-12-05 04:43] LABS: Appearance Urine Clear (Clear)
[2024-12-05 04:50] LABS: Lactate* 1.5 mmol/L (0.5-1.9)
[2024-12-05 04:52] LABS: Hematocrit* 36.4 % (33.0-51.0); Hemoglobin* 12.6 gm/dL (12.0-16.0); Immature Granulocytes Pct Auto 0.3 %; Lymphocytes Absolute Auto 0.70 K/uL (0.90-2.90); Mean Corpuscular HGB Conc 35 gm/dL (32-36); Mean Corpuscular Hemoglobin 34 pg (26-34); Mean Corpuscular Volume 99 fL (80-100); RDW Coefficient of Variation % 12.9 % (11.5-15.5); Red Blood Count* 3.68 m/uL (4.00-5.20); White Blood Count* 11.88 K/uL (4.50-11.00)
[2024-12-05 04:57] LABS: Immature Granulocytes Abs Auto 0.00 K/uL (0.00-0.30); Slide Review Reflex No
[2024-12-05 05:07] LABS: Albumin* 4.0 g/dL (3.3-5.0)
[2024-12-05 05:08] LABS: Chloride* 101 mmol/L (96-114); Potassium* 3.1 mmol/L (3.6-5.1); Sodium* 134 mmol/L (135-149)
[2024-12-05 05:10] LABS: Alanine Aminotransferase* 116 U/L (4-35); Anion Gap 5 mEq/L (7-15); Aspartate Amino Transferase* 166 U/L (12-35); Blood Urea Nitrogen* 8 mg/dL (5-24); Carbon Dioxide* 28 mmol/L (20-32); Creatinine* 0.7 mg/dL (0.5-1.5); Est. Creatinine Clearance* 78.58; Estimated Glomerular Filt Rate 107 ml/min; Total Protein* 6.5 g/dL (6.0-8.3)
[2024-12-05 05:11] LABS: Alkaline Phosphatase* 71 U/L (40-150); Bilirubin Direct* 0.3 mg/dL (0.0-0.5); Bilirubin Total* 0.6 mg/dL (0.1-1.5); Calcium* 9.2 mg/dL (8.4-10.6); Glucose* 116 mg/dL (60-115)
--- NOTE | 2024-12-05 05:40 | CRLHL7_ITS ---
For Patients: As a result of the Century Cures Act, medical imaging exams and procedure reports are released immediately into your electronic medical record. You may view this report before your referring provider. If you have questions, please contact your health care provider. INDICATION: Abdominal pain, elevated LFTs. TECHNIQUE: Ultrasound abdomen limited. Sonographic images of the right upper quadrant were obtained using rob-scale and color Doppler images. COMPARISON: Same day CT abdomen pelvis. FINDINGS: Gallbladder: No stones or sludge. Normal wall thickness. No pericholecystic fluid. Common bile duct: 3 mm. Trace fluid in the gallbladder fossa. IMPRESSION: No evidence of cholelithiasis or cholecystitis. Trace fluid in the gallbladder fossa may be related to periportal edema noted on the same-day CT. Dictated by Katelyn Chadwick MD @ 12/05/2024 7:03:30 AM (Electronically Signed)
[2024-12-05 07:23] LABS: Lactate* 1.6 mmol/L (0.5-1.9)
--- NOTE | 2024-12-05 07:49 | CRLHL7_ITS ---
For Patients: As a result of the Century Cures Act, medical imaging exams and procedure reports are released immediately into your electronic medical record. You may view this report before your referring provider. If you have questions, please contact your health care provider. INDICATION: Abdominal pain and leukocytosis. TECHNIQUE: Chest 2 views. COMPARISON: None. FINDINGS: Lines and tubes: Right chest port catheter, tip projects over the cavoatrial junction. Lungs: Linear left upper lobe airspace opacities. No focal consolidation. Pleural Space: No pleural effusion or pneumothorax. Heart and mediastinum: Normal cardiomediastinal silhouette. Bones and soft tissues: No significant findings. Upper Abdomen: Normal. IMPRESSION: Linear left upper lobe airspace opacities most likely scarring/atelectasis. Cannot rule out early pneumonia in the appropriate clinical setting. Dictated by Narendra Mulligan MD @ 12/05/2024 8:25:08 AM (Electronically Signed)
[2024-12-05] MEDS: PANTOPRAZOLE SODIUM 40 MG INJ IVP (07:55)
[2024-12-05] MEDS: cefTRIAXone 2 GM in 0.9 % SODIUM CHLORIDE Mini-bag 100 ML IVPB (08:02)
--- NOTE | 2024-12-05 09:52 | CRLHL7_ITS ---
For Patients: As a result of the Century Cures Act, medical imaging exams and procedure reports are released immediately into your electronic medical record. You may view this report before your referring provider. If you have questions, please contact your health care provider. INDICATION: Abdominal pain, metastatic cancer, liver lesion seen in segment V. COMPARISON: Same day CT abdomen pelvis and gallbladder ultrasound TECHNIQUE: Multiplanar, multisequence MR imaging of the abdomen, without and with IV contrast. The MRCP protocol was utilized, which includes 3D reconstructed images of the biliary tree. Contrast: 16 mL Dotarem FINDINGS: Normal intrinsic hepatic signal intensity. No steatosis or iron overload. No cirrhosis. There is mild generalized periportal edema and pericholecystic fluid. This is a nonspecific finding that can be seen with acute hepatocellular injury/hepatitis, but is also seen with some general systemic illnesses. There are not any focal liver lesions. The lesion seen on CT could have been a small perfusion abnormality. No gallstones. Normal gallbladder wall thickness and enhancement. No biliary ductal dilatation. No biliary wall enhancement or thickening. Normal pancreas and pancreatic duct. Normal spleen. No adrenal mass. The included kidneys and upper collecting systems are unremarkable. No ascites. No adenopathy. No destructive osseous lesion is seen in the field of view. This exam is not designed to detect osseous lesions. IMPRESSION: 1. Mild nonspecific periportal and pericholecystic edema. 2. No discrete liver mass or lesion. The lesion described on CT could have been a small perfusion abnormality. Dictated by Tere Araujo MD @ 12/05/2024 5:46:26 PM (Electronically Signed)
[2024-12-05 10:11] LABS: Procalcitonin* 0.24 ng/mL (<0.50)
[2024-12-05] MEDS: FOLIC ACID 1 MG TABLET PO (10:58)
[2024-12-05 11:22] LABS: HCO3 VBG 26 mmol/L (21-28); Lactate* 1.8 mmol/L (0.5-1.9); PCO2 VBG 45 mmHG (40-50); PO2 VBG 30.7 mmHG (25-47); pH VBG 7.373 (7.32-7.43)
[2024-12-05 11:24] LABS: White Blood Count* 7.38 K/uL (4.50-11.00)
[2024-12-05 11:41] LABS: Chloride* 102 mmol/L (96-114); Sodium* 132 mmol/L (135-149)
[2024-12-05 11:42] LABS: Potassium* 3.5 mmol/L (3.6-5.1)
[2024-12-05 11:44] LABS: Blood Urea Nitrogen* 7 mg/dL (5-24); Creatinine* 0.7 mg/dL (0.5-1.5); Est. Creatinine Clearance* 78.58; Estimated Glomerular Filt Rate 107 ml/min
[2024-12-05 11:45] LABS: Anion Gap 4 mEq/L (7-15); Calcium* 8.5 mg/dL (8.4-10.6); Carbon Dioxide* 26 mmol/L (20-32); Glucose* 97 mg/dL (60-115)
[2024-12-05] MEDS: SODIUM CHLORIDE 0.9 % (FLUSH) 10 ML SYRINGE 5 ML IVF (16:17)
[2024-12-05] MEDS: HEPARIN 500 UNIT/5 ML SYRINGE IVF (16:18)
--- NOTE | 2024-12-05 16:31 | PM.IMHP1 ---
Assessment and Plan Assessment and plan (1) Abdominal pain: Problem comment: -acute event. Patient is stoic and difficult to read. Differential includes: Passing a gallstone or kidney stone. Gastric ulcer. Mesenteric ischemia/thrombosis. Carcinomatosis. SBP. -Rocephin 2 g Q 24, cultures pending. No paracentesis completed. -abdominal MRI to evaluate common bile duct and this periportal edema -could consider a CTA of the abdomen -lactate is slowly increasing but still under the normal levels. -pain is still present but much improved and has not required any pain medication for several hours -clears for diet challenge Status: Acute (2) Non-small cell lung cancer metastatic to brain: Problem comment: -stage IV non-small cell lung cancer, adenocarcinoma -followed at [facility] (Arlene Camilo MD) -Enhertu; 5.4 mg/kg every 21 dayss; currently treatment protocol (HER2 Antagonist; immunotherapy, mitosis & topoisomerase inhibitor) dx in 12/[address] revealed brain and skeletal mets and EUSEBIA mass Status: Acute (3) Seizure disorder: Problem comment: -continue Keppra Status: Acute (4) Tachycardia: Problem comment: -resolved Status: Acute (5) Daily consumption of alcohol: Problem comment: Vodka and fresca daily Status: Acute Hospitalist- H&P: HPI History of Present Illness Date Seen: 12/05/24 Chief complaint: abdominal pain Narrative: ADMISSION HISTORY AND PHYSICAL - HOSPITALIST Chief Complaint: Abdominal pain, known history of metastatic non small cell lung cancer HPI: 49-year-old white female is admitted from the emergency room after arriving with 10/10 abdominal pain. She stated that it was hard to pinpoint. She definitely felt lower left and right abdominal pain but then it seemed to radiate into her back and up her sternum. She denies diarrhea or constipation. She feels nauseated from the pain but has not vomited. No fever. She said she felt fine yesterday she went to bed without any concerns. She woke at 2:00 a.m. to go urinate and as she laid back down that is when the pain hit her. She said it was acute and intense from the moment go. Only being relieved when she was in the ER and received IV Dilaudid and Toradol. She has had no abdominal surgeries. She has been on Enhertu (IV chemotherapy/immuno suppressive therapy) every 21 days. She is followed at the [facility]. She lives in [place]. Recent staging exams show that she is responding nicely to her current regimen. Previously known were brain Mets, bone Mets, left upper lobe mass, adrenal met. No liver Mets. She still has her gallbladder. She has never had symptoms of cholelithiasis nor kidney stones. She has never had an ulcer. She takes Keppra daily and folic acid daily. She is a daily drinker and many years ago smoked. She denies drug use. ER COURSE: She was in pain and tachycardic upon arrival. Ordered: CT abd/pelvis, labs, gallbladder u/s, CXR, cultures. 2 grams of rocephin, IV PPI and fluids. CODE STATUS: Full Code PCP: PCP is within the [facility] EMERGENCY CONTACT PLAN: Alli has been bedside all day I've updated the PFSH, medications and allergies in the Expanse tabs. INVESTIGATIONS: LABS/MICRO/ECG/IMAGING White blood cell count has gone from 3.3 up to 11.8 in the last 2 weeks. I was able to compare labs from [facility] to our labs. Hemoglobin is stable. Platelets are stable. She had normal electrolytes but today we noticed that her sodium and potassium were both depressed. Her renal function is about the same. There has been mild bump in her AST and ALT with normal bilirubin and alk-phos. Imaging is reviewed, unrevealing. There is some mild periportal edema. There is a very small hypodense lesion in the liver. And osseous Mets are noted. Ultrasound does not reveal evidence of cholelithiasis or cholecystitis. Common bile duct 3 mm. Chest x-ray is not acute. It does show her left upper lobe cancer that looks like scarring now. REVIEW OF SYSTEMS: 12-point ROS completed with patient and negative unless otherwise stated in HPI or below. PHYSICAL EXAM: CONSTITUTIONAL: Chronically ill-appearing. GENERAL: Well nourished. No respiratory distress. Speaks in full sentences. VITAL SIGNS: see record. HEENT: Sclerae are anicteric. No petechiae. CARDIAC: rhythm is regular. There is no S3 or rub. No harsh murmurs. Extremities show trace edema with symmetrical pulses. ABDOMEN: Soft. She really does not guard or react to moderate palpation across the abdomen. NEURO: Speech is fluent. A brief neurologic exam is negative. SKIN: No rashes, petechiae, concerning changes PSYCHIATRIC: Euthymic. ADMIT TO MEDSURG: FLOOR CARE DVT: Lovenox GI: PO intake Time spent: Today I spent 75 minutes seeing the patient, discussing the patient with ER staff, reviewing Expanse and EPIC notes/diagnostics, discussing the care plan with our care time that includes social work, PT/OT, pharmacy, RT, shelter and documenting my impressions and plan in the medical record. [facility] Medical History (Updated 12/05/24 @ 16:54 by Nikkie Ornelas MD) Seizure disorder ?G40.909 - Epilepsy, unspecified, not intractable, without status epilepticus (ICD-10) Non-small cell lung cancer metastatic to brain ?C34.90 - Malignant neoplasm of unspecified part of unspecified bronchus or lung (ICD-10) ?C79.31 - Secondary malignant neoplasm of brain (ICD-10) Surgical History (Updated 12/05/24 @ 16:54 by Nikkie Ornelas MD) H/O insertion of central venous access port ?Z95.828 - Presence of other vascular implants and grafts (ICD-10) Social History What is your current living situation?: I presently have a place to live Problems where you live: no known problems In the past 12 months, utilities in danger of being shut off: no In past 12 months, lack of transportation kept you from medical appts, meetings, work, or getting things needed for daily living: no In the past 12 mos, have been you worried that your food would run out before you had money to buy more?: never true In the past 12 mos, the food you bought just didn't last and you didn't have money to buy more?: never true How often does anyone, including family, friends and others, physically hurt you: never How often does anyone, including family, friends and others, insult or talk down to you: never How often does anyone, including family, friends and others, threaten you with harm: never How often does anyone, including family, friends and others, scream or curse at you: never Meds Home Medications and Allergies Home Medications ?Medication ?Instructions ?Recorded ?Confirmed ?Type folic acid 1 mg tablet 1 mg PO DAILY 12/05/24 12/05/24 History levetiracetam 250 mg tablet 1,000 mg PO BID 12/05/24 12/05/24 History ondansetron HCl 8 mg tablet 8 mg PO 3XD 12/05/24 12/05/24 History Allergies Allergy/AdvReac Type Severity Reaction Status Date / Time azithromycin Allergy Verified 12/05/24 04:56 Exam Const: Vital Signs, click to edit/add: Vital Signs - 24 hr 12/05/24 03:55 12/05/24 04:32 12/05/24 04:33 Temperature 98.8 F Pulse Rate 108 H 103 H Pulse Rate [Left P ulse Oximeter] Pulse Rate [Pulse Oximeter] 111 H Respiratory Rate 18 18 Blood Pressure 160/100 H Blood Pressure [Le ft Arm] Blood Pressure [Ri ght Upper Arm] 145/121 H Pulse Oximetry 96 92 93 Oxygen Delivery Me od Room Air 12/05/24 04:34 12/05/24 04:45 12/05/24 05:00 Temperature Pulse Rate 106 H 106 H 104 H Pulse Rate [Left P ulse Oximeter] Pulse Rate [Pulse Oximeter] Respiratory Rate Blood Pressure Blood Pressure [Le ft Arm] Blood Pressure [Ri ght Upper Arm] Pulse Oximetry 94 96 92 Oxygen Delivery Me thod 12/05/24 05:01 12/05/24 05:24 12/05/24 05:30 Temperature Pulse Rate 103 H 102 H 104 H Pulse Rate [Left P ulse Oximeter] Pulse Rate [Pulse Oximeter] Respiratory Rate Blood Pressure 131/87 Blood Pressure [Le ft Arm] Blood Pressure [Ri ght Upper Arm] Pulse Oximetry 94 95 94 Oxygen Delivery Me thod 12/05/24 05:31 12/05/24 05:32 12/05/24 05:45 Temperature Pulse Rate 104 H 107 H 98 Pulse Rate [Left P ulse Oximeter] Pulse Rate [Pulse Oximeter] Respiratory Rate Blood Pressure 135/81 Blood Pressure [Le ft Arm] Blood Pressure [Ri ght Upper Arm] Pulse Oximetry 95 94 93 Oxygen Delivery Me thod 12/05/24 06:00 12/05/24 06:01 12/05/24 06:15 Temperature Pulse Rate 100 96 105 H Pulse Rate [Left P ulse Oximeter] Pulse Rate [Pulse Oximeter] Respiratory Rate Blood Pressure 117/76 Blood Pressure [Le ft Arm] Blood Pressure [Ri ght Upper Arm] Pulse Oximetry 93 96 96 Oxygen Delivery Me thod 12/05/24 06:30 12/05/24 06:32 12/05/24 07:01 Temperature Pulse Rate 106 H 103 H 94 Pulse Rate [Left P ulse Oximeter] Pulse Rate [Pulse Oximeter] Respiratory Rate Blood Pressure 100/75 116/74 Blood Pressure [Le ft Arm] Blood Pressure [Ri ght Upper Arm] Pulse Oximetry 96 95 94 Oxygen Delivery Me thod 12/05/24 07:30 12/05/24 07:45 12/05/24 08:00 Temperature Pulse Rate 97 95 100 Pulse Rate [Left P ulse Oximeter] Pulse Rate [Pulse Oximeter] Respiratory Rate Blood Pressure Blood Pressure [Le ft Arm] Blood Pressure [Ri ght Upper Arm] Pulse Oximetry 94 95 95 Oxygen Delivery Me thod 12/05/24 08:15 12/05/24 10:20 12/05/24 15:44 Temperature 97.6 F 97.4 F L Pulse Rate 96 Pulse Rate [Left P ulse Oximeter] 92 87 Pulse Rate [Pulse Oximeter] Respiratory Rate 16 18 16 Blood Pressure Blood Pressure [Le ft Arm] 124/89 114/76 Blood Pressure [Ri ght Upper Arm] Pulse Oximetry 96 97 97 Oxygen Delivery Me thod Room Air Room Air Hospitalist - H&P: Result Labs Labs: Short CBC 12/05/24 12/05/24 Range/Units 04:45 11:18 WBC 11.88 H 7.38 (4.50-11.00) K/uL Hgb 12.6 (12.0-16.0) gm/dL Hct 36.4 (33.0-51.0) % Plt Count 168 (140-440) K/uL BMP 12/05/24 12/05/24 04:45 11:18 Sodium 134 L 132 L Potassium 3.1 L 3.5 L Chloride 101 102 Carbon Dioxide 28 26 BUN 8 7 Creatinine 0.7 0.7 Glucose 116 H 97 Calcium 9.2 8.5 Liver Function 12/05/24 Range/Units 04:45 Total Bilirubin 0.6 (0.1-1.5) mg/dL Direct Bilirubin 0.3 (0.0-0.5) mg/dL AST 166 H (12-35) U/L ALT 116 H (4-35) U/L Alkaline Phosphatase 71 (40-150) U/L Albumin 4.0 (3.3-5.0) g/dL Urine 12/05/24 Range/Units 04:38 Urine Color Yellow (Yellow) Urine Appearance Clear (Clear) Urine pH 5.5 (5.0-8.5) Ur Specific Noonan 1.015 (1.000-1.030) Urine Protein Trace A (Negative) Urine Glucose (UA) Negative (Negative)
[2024-12-05 17:27] LABS: Ethanol* < 0.01 % (0.01-0.03)
[2024-12-06 03:35] VITALS: BP 119/86; PULSE 71; RESP 16; TEMP 36.6; O2SAT 96
[2024-12-06 06:52] LABS: Hematocrit* 35.1 % (33.0-51.0); Hemoglobin* 12.2 gm/dL (12.0-16.0); Immature Granulocytes Pct Auto 0.2 %; Mean Corpuscular HGB Conc 35 gm/dL (32-36); Mean Corpuscular Hemoglobin 35 pg (26-34); Mean Corpuscular Volume 99 fL (80-100); RDW Coefficient of Variation % 13.1 % (11.5-15.5); Red Blood Count* 3.53 m/uL (4.00-5.20); White Blood Count* 4.45 K/uL (4.50-11.00)
[2024-12-06 06:57] LABS: Albumin* 3.5 g/dL (3.3-5.0); Chloride* 104 mmol/L (96-114)
[2024-12-06 06:58] LABS: Potassium* 3.6 mmol/L (3.6-5.1); Sodium* 137 mmol/L (135-149)
[2024-12-06 07:00] LABS: Blood Urea Nitrogen* 5 mg/dL (5-24); Creatinine* 0.8 mg/dL (0.5-1.5); Est. Creatinine Clearance* 68.76; Estimated Glomerular Filt Rate 91 ml/min; Immature Granulocytes Abs Auto 0.00 K/uL (0.00-0.30); Lymphocytes Absolute Auto 1.00 K/uL (0.90-2.90); Slide Review Reflex No
[2024-12-06 07:01] LABS: Alanine Aminotransferase* 82 U/L (4-35); Alkaline Phosphatase* 55 U/L (40-150); Anion Gap 4 mEq/L (7-15); Aspartate Amino Transferase* 64 U/L (12-35); Bilirubin Direct* 0.2 mg/dL (0.0-0.5); Bilirubin Total* 0.3 mg/dL (0.1-1.5); Calcium* 9.0 mg/dL (8.4-10.6); Carbon Dioxide* 29 mmol/L (20-32); Glucose* 92 mg/dL (60-115); Total Protein* 5.8 g/dL (6.0-8.3)
[2024-12-06 07:31] LABS: HCO3 VBG 26 mmol/L (21-28); Lactate* 1.0 mmol/L (0.5-1.9); PCO2 VBG 37 mmHG (40-50); PO2 VBG 110.0 mmHG (25-47); pH VBG 7.456 (7.32-7.43)
[2024-12-06 08:25] VITALS: BP 115/85; PULSE 81; RESP 16; TEMP 36.4; O2SAT 96
[2024-12-06] MEDS: FOLIC ACID 1 MG TABLET PO (08:26)
[2024-12-06] MEDS: cefTRIAXone 2 GM in 0.9 % SODIUM CHLORIDE Mini-bag 100 ML IVPB (08:27)
[2024-12-06] MEDS: SODIUM CHLORIDE 0.9 % (FLUSH) 10 ML SYRINGE 5 ML IVF ×2 (08:27→10:13)
[2024-12-06] MEDS: HEPARIN 500 UNIT/5 ML SYRINGE IVF (10:13)
--- NOTE | 2024-12-06 10:41 | PM.DS1 ---
DS: Providers Provider Date Seen: 12/06/24 Date of admission: 12/05/24 08:24 Primary care physician: Not a Local Provider Admitting Clinician: Nikkie Ornelas MD Attending Physician on discharge: Nikkie Ornelas MD Date of Discharge: 12/06/24 DS: Diagnosis Discharge Diagnosis (1) Abdominal pain: Status: Acute Problem details: -acute event. Patient remained stoic. She did not require analgesia after arriving from the ED. Differential includes: enteritis (viral? med effect?) Passing a gallstone or kidney stone. Gastric ulcer. Mesenteric ischemia/thrombosis. Carcinomatosis. SBP. -Rocephin 2 g Q 24 x 2 doses, cultures NGTD. No paracentesis completed. I was covering for presumed SBP. -abdominal MRI revealed nonspecific edema (Enhertu side effect?) -Lactate was high normal but resolved MR Abdomen 1. Mild nonspecific periportal and pericholecystic edema. 2. No discrete liver mass or lesion. The lesion described on CT could have been a small perfusion abnormality. CT Abd/Pelvis 1. Scattered osseous lesions, most of which are sclerotic, though some appear slightly lytic are concerning for osseous metastases. 2. There is a 0.2 centimeter hypodense lesion in segment 5 of the liver, which is indeterminate and too small to characterize. This can be followed on future exams. 3. Mild periportal edema. CXR Linear left upper lobe airspace opacities most likely scarring/atelectasis. Cannot rule out early pneumonia in the appropriate clinical setting. Abdomen u/s No evidence of cholelithiasis or cholecystitis. Trace fluid in the gallbladder fossa may be related to periportal edema noted on the same-day CT. (2) Non-small cell lung cancer metastatic to brain: Status: Acute Problem details: -stage IV non-small cell lung cancer, adenocarcinoma -followed at [facility] (Arlene Camilo MD) -Enhertu; 5.4 mg/kg every 21 dayss; currently treatment protocol (HER2 Antagonist; immunotherapy, mitosis & topoisomerase inhibitor) dx in 12/[address] revealed brain and skeletal mets and EUSEBIA mass (3) Seizure disorder: Status: Acute Problem details: -continue Keppra (4) Daily consumption of alcohol: Status: Acute Problem details: Vodka and fresca daily (5) Tachycardia: Status: Acute Problem details: -resolved DS: Summary Hospital Course Hospital Course: QUESTIONS TO ASK AT FOLLOW-UP: 1. Has there been any change in the abdominal discomfort you were discharged with? Any more of the acute abdominal pain the presented with ?2. Are you tolerating a normal diet? 3. Have you had updated labs reviewed given the findings new LFT elevation, increasing CRP and mild abnormal sodium and potassium which was resolved before discharge 4. Does your treatment team feel an EGD or cardiac stress test indicated. BRIEF HOSPITAL COURSE: Patient was admitted overnight. See ER and hospitalist H&P for further detail on admission. Once patient arrived on the medical floor, she never required further pain management. Further imaging did not narrow down because of the acute pain crisis. We advanced her diet. We repeated labs. She was discharged the morning after admission with only a dull abdominal discomfort and LFTs that were down trending. Her CRP was up but vital signs were stable and she was requesting discharge, which the team agreed with. Close follow-up with her oncology team is arranged. Our team discussed f/u could involved an EGD/Colonoscopy and or cardiac stress test. Troponin is negative. ECG does show low voltage NSR with questionable q waves in the inferior leads. These are not new findings when I look in Plan B Acqusitions at previous ECG results. I also reviewed the echocardiogram from July 2024. DISCHARGE MEDICATIONS: See Reconciled list - SIGNIFICANT CHANGES: No med changes Specific instructions to the patient and follow-up are outlined below. REVIEW OF SYSTEMS No new chest pain or dyspnea Pain controlled No voiding difficulties Tolerating diet challenge PHYSICAL EXAM: CONSTITUTIONAL: Conversive, good historian. A/O. Knows setting and context. GENERAL: Well-developed and above ideal body weight, in no respiratory distress. VITAL SIGNS: see record. HEENT: Sclerae are anicteric. No petechiae. CARDIAC: rhythm is regular. There is no S3 or rub. No harsh murmurs. Extremities show trace edema with symmetrical pulses. PULM: good air entry with no wheeze. ABDOMEN: soft. No guarding. NEURO: Speech is fluent. A brief neurologic exam is negative. SKIN: No rashes, petechiae, concerning changes PSYCHIATRIC: Euthymic. DISPOSITION: Home with Time spent on discharge 37 minutes. Status at Discharge Functional status at discharge: independent ambulation Overall status at discharge: patient is progressing back to baseline Time Spent with Patient Time attestation: Total time spent providing and/or coordinating discharge services: Exam Const: Vital Signs, click to edit/add: Vital Signs - 24 hr 12/05/24 15:44 12/05/24 19:39 12/05/24 23:00 Temperature 97.4 F L 97.9 F Pulse Rate [Left P ulse Oximeter] 87 85 85 Respiratory Rate 16 16 16 Blood Pressure [Le ft Arm] 114/76 114/74 Pulse Oximetry 97 97 Oxygen Delivery Me thod Room Air Room Air 12/06/24 03:35 12/06/24 08:25 Temperature 98 F 97.6 F Pulse Rate [Left P ulse Oximeter] 71 81 Respiratory Rate 16 16 Blood Pressure [Le ft Arm] 119/86 115/85 Pulse Oximetry 96 96 Oxygen Delivery Me thod Room Air Room Air DS: Data Data Completed and Pending Labs on day of discharge: Labs from last 24 hours 12/06/24 12/06/24 12/05/24 07:24 06:08 16:30 WBC 4.45 L RBC 3.53 L Hgb 12.2 Hct 35.1 MCV 99 MCH 35 H MCHC 35 RDW Coeff of Danny 13.1 Plt Count 132 L Neut % (Auto) 56.7 Lymph % (Auto) 21.8 [place] % (Auto) 6.7 Eos % (Auto) 14.2 H Baso % (Auto) 0.4 Neut # (Auto) 2.50 Lymph # (Auto) 1.00 [place] # (Auto) 0.30 Eos # (Auto) 0.60 H Baso # (Auto) 0.00 Abs Immat Gran (auto) 0.00 Imm/Tot Granulo (auto) 0.2 VBG pH 7.456 H VBG pCO2 37 L VBG pO2 110.0 H VBG HCO3 26 Sodium 137 Potassium 3.6 Chloride 104 Carbon Dioxide 29 Anion Gap 4 L BUN 5 Creatinine 0.8 Estimated Creat Clear 68.76 Estimated GFR 91 Glucose 92 Lactate 1.0 Calcium 9.0 Phosphorus 5.1 H Magnesium 1.7 Total Bilirubin 0.3 Direct Bilirubin 0.2 AST 64 H ALT 82 H Alkaline Phosphatase 55 C-Reactive Protein 5.0 H Total Protein 5.8 L Albumin 3.5 Lipase 51 Ethyl Alcohol Lab Acknowledgement Test Added 12/05/24 12/05/24 11:18 04:45 WBC 7.38 RBC Hgb Hct MCV MCH MCHC RDW Coeff of Danny Plt Count Neut % (Auto) Lymph % (Auto) [place] % (Auto) Eos % (Auto) Baso % (Auto) Neut # (Auto) Lymph # (Auto) [place] # (Auto) Eos # (Auto) Baso # (Auto) Abs Immat Gran (auto) Imm/Tot Granulo (auto) VBG pH 7.373 VBG pCO2 45 VBG pO2 30.7 VBG HCO3 26 Sodium 132 L Potassium 3.5 L Chloride 102 Carbon Dioxide 26 Anion Gap 4 L BUN 7 Creatinine 0.7 Estimated Creat Clear 78.58 Estimated GFR 107 Glucose 97 Lactate 1.8 Calcium 8.5 Phosphorus Magnesium Total Bilirubin Direct Bilirubin AST ALT Alkaline Phosphatase C-Reactive Protein Total Protein Albumin Lipase Ethyl Alcohol < 0.01 Lab Acknowledgement Preliminary micro results at discharge 12/05/24 08:05 Blood Culture - Preliminary Blood NO GROWTH AFTER 24 HOURS 12/05/24 07:58 Blood Culture - Preliminary Blood NO GROWTH AFTER 24 HOURS 12/05/24 04:38 Urine Culture - Preliminary Urine,Clean Catch <10,000 COL/ML GRAM POSITIVE KERLINE Discharge Plan Discharge Disposition: Home, Self-Care Date of Admission: 12/05/24 08:24 Primary Care Provider: Provider,Not a Local Condition: Improved Anticipated Discharge Date/Time: 12/06/24 10:30 Discharge Medications: Continued ondansetron HCl 8 mg tablet 8 mg PO 3XD levetiracetam 250 mg tablet 1,000 mg PO BID folic acid 1 mg tablet 1 mg PO DAILY Discharge Orders: Discharge Order (Routine); Ordered 12/06/24 Ordered By: Nikkie Ornelas Patient Education: Abdominal Pain (DC) Additional Instructions: 1. Return to the ED (Any [facility] Facility preferred) if pain returns 2. Follow-up with your oncologist as planned, bring discharge summary with you. Let her know that all radiology images have been pushed to [facility] Activity Level: No Restrictions Discharge Diet: Regular Follow Up Appointments: Provider,Not a Local [Primary Care Provider, Family Practice] Referral Note: Pt has f/u arranged with her oncologist Forms: MyHealth Info Instructions
== END 2024-12-06 11:35 | disposition home or self-care (01) ==
LOC: ED 07:52 → MEDSURG 08:24
PROVIDERS: Admitting Provider Family Medicine; Emergency Provider Family Medicine; Visit Provider Family Medicine
DX: R10.9 Unspecified abdominal pain (principal); R00.0 Tachycardia, unspecified; G40.909 Epilepsy, unspecified, not intractable, without status epilepticus; F10.20 Alcohol dependence, uncomplicated; C34.90 Malignant neoplasm of unspecified part of unspecified bronchus or lung; C79.31 Secondary malignant neoplasm of brain
CPT/HCPCS: 36415; 71046; 74177; 74183; 76705; 80048; 80069; 80076; 81001; 82077; 82803; 83605; 83690; 83735; 84145; 84443; 84484; 85025; 85048; 86140; 87040; 87086; 87338; 87507; 93005; 96365; 96366; 96375; 99285; A9270; A9575; G0378; J0696; J1171; J1642; J1885; J2405; J2470; J7030; Q9967